=== PATIENT | female | born 1970 | race Caucasian/White ===

== ENCOUNTER 2021-12-17 00:25 | Observation (INO) ==
[2021-12-17 01:08] LABS: Color,Urine Orange (Yellow); Mucus,Urine Few per lpf (None-Few); RBC,Urine TNTC per hpf (0-3)
[2021-12-17 01:09] LABS: Clarity,Urine Hazy (Clear); WBC,Urine TNTC per hpf (0-3)
[2021-12-17] MEDS ORDERED: Isovue-370 500 ML BOTTLE IVP ONE (01:57)
[2021-12-17] MEDS ORDERED: Ketorolac 30 MG/ML VIAL IVP ONE (01:59)
[2021-12-17] MEDS ORDERED: 0.9 % Sodium Chloride 1,000 ML IVC ONE ×2 (01:59→04:31)
[2021-12-17] MEDS ORDERED: Ondansetron 4 MG/2 ML VIAL IVP ONE ×2 (01:59→13:27)
[2021-12-17 02:32] LABS: Basophils # 0.1 K/mcL (0.0-0.2); Basophils % 0.5 %; Eosinophils # 0.2 K/mcL (0.0-0.6); Eosinophils % 0.8 %; Hemoglobin 10.7 g/dL (11.5-15.4); Immature Granulocytes % 0.7 % (0-4); Lymphocytes # 1.7 K/mcL (0.6-4.6); Lymphocytes % 7.7 %; Mean Corpuscular HGB Conc 31.5 g/dL (31.6-35.5); Mean Corpuscular Hemoglobin 26.7 pg (28.0-33.3); Mean Corpuscular Volume 84.8 fL (83.0-100.0); Mean Platelet Volume 9.7 fL (9.4-12.4); Monocytes # 1.7 K/mcL (0.0-1.3); Monocytes % 8.1 %; Neutrophils # 17.7 K/mcL (1.6-8.9); Platelet Count 529 K/mcL (140-400); Red Blood Count 4.01 M/mcL (3.82-4.97); Segmented Neutrophils % 82.2 %; White Blood Count 21.6 K/mcL (4.3-11.1)
[2021-12-17 02:52] LABS: Alanine Aminotransferase 15 Units/L (7-52); Albumin 4.2 g/dL (3.5-5.7); Albumin/Globulin Ratio 1.2 (1.1-2.2); Alkaline Phosphatase 89 Units/L (34-104); Aspartate Amino Transferase 15 Units/L (13-39); BUN/Creatinine Ratio 19 (6-26); Bilirubin,Direct 0.1 mg/dL (0.0-0.2); Bilirubin,Indirect 0.3 mg/dL (0.0-1.0); Bilirubin,Total 0.4 mg/dL (0.3-1.0); Blood Urea Nitrogen 13 mg/dL (6-20); Calcium 9.8 mg/dL (8.6-10.3); Carbon Dioxide 26 mEq/L (23-29); Chloride 103 mEq/L (98-107); Globulin 3.6 g/dL (2.4-3.5); Glucose 110 mg/dL (70-105); Lipase 21 Units/L (11-82); Osmolality,Calculated 283 (280-300); Potassium 3.6 mEq/L (3.5-5.1); Sodium 136 mEq/L (136-145); Total Protein 7.8 g/dL (6.4-8.9); eGFR For African Americans > 60 (> 60); eGFR For Non-African Americans > 60 (> 60)
[2021-12-17] MEDS ORDERED: cefTRIAXone 1,000 MG in 0.9 % Sodium Chloride Mini Bag 100 ML IVPB ONE (04:14)
[2021-12-17] MEDS ORDERED: Naloxone 0.4 MG/ML INJ IVP PRN ×2 (05:01→17:19)
[2021-12-17] MEDS ORDERED: Ondansetron 4 MG/2 ML VIAL IVP PRN ×3 (05:01→17:19)
[2021-12-17] MEDS ORDERED: *HR* OxyCODONE Immed Rel 5 MG TABLET PO PRN ×3 (05:01→17:19)
[2021-12-17] MEDS ORDERED: 0.9 % Sodium Chloride 1,000 ML IVC SCH ×2 (05:15→17:19)
[2021-12-17 06:37] LABS: Prothrombin Time 11.4 Seconds (9.4-12.1)
[2021-12-17] MEDS ORDERED: *HR* FentaNYL (PF) 100 MCG/2 ML VIAL ONE (15:11)
[2021-12-17] MEDS ORDERED: *HR* Midazolam HCl 2 MG/2 ML VIAL ONE (15:12)
[2021-12-17] MEDS ORDERED: *HR* Propofol 200 MG/20 ML VIAL IVP ONE (15:12)
[2021-12-17] MEDS ORDERED: Ondansetron 4 MG/2 ML VIAL ONE (15:16)
[2021-12-17] MEDS ORDERED: Lidocaine -MPF 2% 2 ML VIAL ONE (15:16)
[2021-12-17] MEDS ORDERED: *HR* HYDROmorphone PF 0.5 MG/0.5 ML SYRINGE IVP PRN (15:44)
[2021-12-17] MEDS ORDERED: Promethazine 6.25 MG in Water for inj. (sterile) 20 ML IVPB PRN (15:44)
[2021-12-17] MEDS ORDERED: Acetaminophen IV 1,000 MG/100 ML BAG IVPB ONE ×2 (15:46→19:45)
[2021-12-17] MEDS ORDERED: *HR* Belladonna Alkaloids/Opium 30 MG RECTAL SUPPOSITORY RC PRN (17:19)
[2021-12-17] MEDS ORDERED: Prochlorperazine 10 MG/2 ML VIAL IVP ONE (22:15)
[2021-12-18 01:33] LABS: Basophils # 0.1 K/mcL (0.0-0.2); Basophils % 0.4 %; Immature Granulocytes % 0.5 % (0-4); Lymphocytes % 5.8 %; Mean Corpuscular HGB Conc 31.1 g/dL (31.6-35.5); Mean Corpuscular Hemoglobin 26.8 pg (28.0-33.3); Mean Corpuscular Volume 86.2 fL (83.0-100.0); Mean Platelet Volume 9.7 fL (9.4-12.4); Monocytes # 0.9 K/mcL (0.0-1.3); Neutrophils # 15.7 K/mcL (1.6-8.9); Platelet Count 401 K/mcL (140-400); Red Blood Count 3.25 M/mcL (3.82-4.97); Red Cell Distribution Width 16.9 % (11.5-14.5); Segmented Neutrophils % 88.3 %; White Blood Count 17.8 K/mcL (4.3-11.1)
[2021-12-18 01:34] LABS: Hemoglobin 8.7 g/dL (11.5-15.4)
[2021-12-18 01:53] LABS: BUN/Creatinine Ratio 25 (6-26); Blood Urea Nitrogen 14 mg/dL (6-20); Calcium 8.7 mg/dL (8.6-10.3); Carbon Dioxide 21 mEq/L (23-29); Chloride 112 mEq/L (98-107); Glucose 142 mg/dL (70-105); Magnesium 1.7 mg/dL (1.6-2.6); Osmolality,Calculated 291 (280-300); Potassium 3.5 mEq/L (3.5-5.1); Sodium 139 mEq/L (136-145); eGFR For African Americans > 60 (> 60); eGFR For Non-African Americans > 60 (> 60)
[2021-12-18 03:52] VITALS: TEMP 98.2
[2021-12-18 07:24] VITALS: BP 115/62; PULSE 63; O2SAT 98
[2021-12-18] MEDS ORDERED: cefTRIAXone 1,000 MG in 0.9 % Sodium Chloride 10 ML IVP SCH ×2 (09:00)
== END 2021-12-18 11:30 | disposition home or self-care (01) ==
LOC: 3ANU 00:25 → EMEROOARM 00:25 → SUATTDRO 05:01 → 3ANU 05:49
PROVIDERS: ADMIT Student in an Organized Health Care Education/Training Program; ATTEND Family Medicine

== ENCOUNTER 2022-01-24 14:59 | Inpatient (IN) ==
[2022-01-24] MEDS ORDERED: *HR* Midazolam HCl 2 MG/2 ML VIAL ONE (15:10)
[2022-01-24] MEDS ORDERED: *HR* Propofol 200 MG/20 ML VIAL IVP ONE (15:10)
[2022-01-24] MEDS ORDERED: *HR* FentaNYL (PF) 100 MCG/2 ML VIAL ONE (15:10)
[2022-01-24] MEDS ORDERED: *HR* Rocuronium Bromide 50 MG/5 ML VIAL ONE ×2 (15:11→17:47)
[2022-01-24] MEDS ORDERED: Ondansetron 4 MG/2 ML VIAL ONE (15:11)
[2022-01-24] MEDS ORDERED: Lidocaine -MPF 2% 2 ML VIAL ONE (15:11)
[2022-01-24] MEDS ORDERED: Clindamycin 900 MG/50 ML 900 MG/50 ML IV.SOLN IVPB ONE (15:36)
[2022-01-24] MEDS ORDERED: Ringers Solution, Lactated 1,000 ML IVC SCH (15:45)
[2022-01-24] MEDS ORDERED: Celecoxib 100 MG CAPSULE PO ONE (16:30)
[2022-01-24] MEDS ORDERED: Famotidine 20 MG TABLET PO ONE ×2 (16:30)
[2022-01-24] MEDS ORDERED: *HR* Vasopressin 20 UNIT/ML VIAL ONE (17:00)
[2022-01-24] MEDS ORDERED: EPHEDrine 50 MG/ML VIAL ONE (17:35)
[2022-01-24] MEDS ORDERED: Lidocaine HCL 4 ML Topical Solution (Laryng-O-Jet Kit Sterile Pak) TP ONE (17:46)
[2022-01-24] MEDS ORDERED: Sugammadex Sodium 200 MG/2 ML VIAL IV ONE (18:18)
[2022-01-24] MEDS ORDERED: Naloxone 0.4 MG/ML INJ IVP PRN (18:27)
[2022-01-24] MEDS ORDERED: Ketorolac 30 MG/ML VIAL IVP PRN (18:27)
[2022-01-24] MEDS: *HR* HYDROmorphone PF 0.5 MG/0.5 ML SYRINGE IVP PRN ×2 (18:49→19:12)
[2022-01-24] MEDS: Clindamycin 900 MG/50 ML 900 MG/50 ML IV.SOLN IVPB SCH (23:19)
[2022-01-24] MEDS: *HR* OxyCODONE/APAP 5/325 TABLET PO PRN (23:23)
[2022-01-25 04:39] VITALS: TEMP 98.1; O2SAT 95
[2022-01-25 04:56] LABS: Basophils % 0.2 %; Hematocrit 25.9 % (35.3-44.9); Immature Granulocytes % 0.6 % (0-4); Lymphocytes # 0.8 K/mcL (0.6-4.6); Lymphocytes % 5.1 %; Mean Corpuscular HGB Conc 30.5 g/dL (31.6-35.5); Mean Corpuscular Hemoglobin 25.7 pg (28.0-33.3); Mean Corpuscular Volume 84.4 fL (83.0-100.0); Mean Platelet Volume 9.4 fL (9.4-12.4); Monocytes # 0.9 K/mcL (0.0-1.3); Monocytes % 5.3 %; Neutrophils # 14.6 K/mcL (1.6-8.9); Platelet Count 393 K/mcL (140-400); Red Blood Count 3.07 M/mcL (3.82-4.97); Red Cell Distribution Width 16.8 % (11.5-14.5); Segmented Neutrophils % 88.8 %; White Blood Count 16.4 K/mcL (4.3-11.1)
[2022-01-25 04:57] LABS: Hemoglobin 7.9 g/dL (11.5-15.4)
[2022-01-25 05:07] LABS: BUN/Creatinine Ratio 17 (6-26); Blood Urea Nitrogen 11 mg/dL (6-20); eGFR For African Americans > 60 (> 60); eGFR For Non-African Americans > 60 (> 60)
[2022-01-25 06:38] VITALS: BP 108/62; PULSE 71
[2022-01-25] MEDS: Clindamycin 900 MG/50 ML 900 MG/50 ML IV.SOLN IVPB SCH (09:33)
[2022-01-25] MEDS: *HR* OxyCODONE/APAP 5/325 TABLET PO PRN (10:28)
== END 2022-01-25 13:45 | disposition home or self-care (01) | DRG 743 ==
LOC: SAMDAY 14:59 → 1NENUOBS 20:32
PROVIDERS: ADMIT Obstetrics & Gynecology; ATTEND Obstetrics & Gynecology